=== PATIENT | female | born 2005 | race Caucasian/White ===

== ENCOUNTER 2025-03-25 10:29 | Emergency (ER) | payer OTHER ==
[~2025-03-25] VITALS: Ht 170.2 cm; Wt 95.7 kg
[2025-03-25 11:32] VITALS: BP 125/73
== END 2025-03-25 11:33 | disposition home or self-care (01) ==
LOC: ED 10:29
DX: J06.9 Acute upper respiratory infection, unspecified (principal)
CPT/HCPCS: 87651; 99283